=== PATIENT | female | born 2000 | race African-American/Black ===

== ENCOUNTER 2022-04-23 06:19 | Emergency (ER) | payer SELFPAY ==
--- NOTE | 2022-04-23 07:15 | ER ---
Nurse's Notes [facility] Name: Jag So Age: 22 yrs Sex: Female : 2000 Arrival Date: 04/23/2022 Time: 06:24 Bed 7 Private MD: Diagnosis: Dysuria;Acute upper respiratory infection, unspecified Presentation: 04/23 06:31 Chief complaint: Patient states: cough and sore throat began yesterday. Coronavirus kl screen: Vaccine status: Patient reports being unvaccinated. Ebola Screen: Patient negative for fever greater than or equal to 101.5 degrees Fahrenheit, and additional compatible Ebola Virus Disease symptoms. Initial Sepsis Screen: Does the patient meet any 2 criteria? No. Patient's initial sepsis screen is negative. Does the patient have a suspected source of infection? No. Patient's initial sepsis screen is negative. Risk Assessment: Do you want to hurt yourself or someone else? Patient reports no desire to harm self or others. Onset of symptoms was April 22, 2022. 06:31 Method Of Arrival: Ambulatory 06:31 Acuity: KESHAWN 3 kl Triage Assessment: 06:34 General: Appears in no apparent distress. comfortable, well developed, well nourished, kl Behavior is calm, cooperative. Pain: Complains of pain in throat. EENT: Reports difficulty swallowing. Respiratory: No deficits noted. Historical: - Allergies: 06:33 No Known Allergies; kl - Home Meds: 06:33 None [Active]; kl - PMHx: 06:33 Pneumothorax; kl - PSHx: 06:33 None; kl - Immunization history:: Adult Immunizations not up to date. - Social history:: Smoking status: Patient denies any tobacco usage or history of. - Family history:: not pertinent. Screenin:49 Abuse screen: Denies threats or abuse. Denies injuries from another. Nutritional as6 screening: No deficits noted. Tuberculosis screening: No symptoms or risk factors identified. Fall Risk None identified. Assessment: 07:00 General: RECD REPORT FROM ZAIRE TURNER. 22YO BF P/W SORE THROAT, NOW C/O DYSURIA. UOP bp PENDING. 08:04 Reassessment: PT D/C HOME AMBULATORY WITH FAMILY, DX WITH VIRAL URI AND DYSURIA. bp Vital Signs: 06:31 BP 112 / 85; Pulse 83; Resp 16; Temp 98.3(O); Pulse Ox 100% on R/A; Pain 10/10; kl 06:48 BP 110 / 76; Pulse 82; Resp 18 S; Pulse Ox 100% on R/A; as6 08:04 BP 115 / 73; Pulse 85; Resp 16; Pulse Ox 100% ; bp ED Course: 06:24 Patient arrived in ED. bp1 06:33 Zaire Soliz, RN is Primary Nurse. as6 06:33 Triage completed. kl 06:33 Renny Woodruff MD is Attending Physician. denise 06:48 Arm band placed on. as6 06:49 Bed in low position. Call light in reach. Pulse ox on. NIBP on. as6 07:16 Urine Culture Sent. mb7 08:05 No provider procedures requiring assistance completed. Patient did not have IV access bp during this emergency room visit. Administered Medications: 07:30 Drug: Augmentin (Amoxicillin-Clavulanate) 875 mg Route: PO; bp 08:04 Follow up: Response: No adverse reaction bp Medication: 08:05 VIS not applicable for this client. bp Outcome: 07:15 Discharge ordered by . denise 08:05 Discharged to home ambulatory, with family. bp 08:05 Condition: stable 08:05 Discharge instructions given to patient, Instructed on discharge instructions, follow up and referral plans. medication usage, Demonstrated understanding of instructions, follow-up care, medications, Prescriptions given X 1. 08:06 Patient left the ED. bp Signatures: Latia Lopez RN RN kl Anderson, Corey, MD MD cha Peltier, Brian, RN RN bp Paniauga, Brittany bp1 Zaire Soliz RN RN as [place] Mildred mb7
[2022-04-23 07:16] LABS: Urine Blood 3+ (Negative); Urine Glucose Negative (Negative); Urine Protein Negative (Negative); Urine Specific Gravity 1.015 (1.005-1.030)
--- NOTE | 2022-04-23 07:16 | EDPHYS ---
Physician Documentation [facility] Name: Jag So Age: 22 yrs Sex: Female : 2000 Arrival Date: 04/23/2022 Time: 06:24 Bed 7 Private MD: ED Physician Renny Woodruff HPI: 04/23 07:06 This 22 yrs old Black Female presents to ER via Ambulatory with complaints of Burning denise in throat. 07:06 The patient presents with sore throat. The patient describes throat pain as burning, denise constant. Onset: The symptoms/episode began/occurred 2 day(s) ago. The patient presents with urinary symptoms, dysuria, frequency, hematuria, hesitancy. Onset: The symptoms/episode began/occurred 2 day(s) ago. Modifying factors: The symptoms are alleviated by nothing. Associated signs and symptoms: Pertinent positives: syncope. Severity of symptoms: At their worst the symptoms were mild, in the emergency department the symptoms are unchanged. Historical: - Allergies: 06:33 No Known Allergies; kl - Home Meds: 06:33 None [Active]; kl - PMHx: 06:33 Pneumothorax; kl - PSHx: 06:33 None; kl - Immunization history:: Adult Immunizations not up to date. - Social history:: Smoking status: Patient denies any tobacco usage or history of. - Family history:: not pertinent. ROS: 07:06 Constitutional: Negative for fever, chills, and weight loss, Eyes: Negative for injury, denise pain, redness, and discharge, Neck: Negative for injury, pain, and swelling, Cardiovascular: Negative for chest pain, palpitations, and edema, Respiratory: Negative for shortness of breath, cough, wheezing, and pleuritic chest pain, Abdomen/GI: Negative for abdominal pain, nausea, vomiting, diarrhea, and constipation, Back: Negative for injury and pain, MS/Extremity: Negative for injury and deformity, Skin: Negative for injury, rash, and discoloration, Neuro: Negative for headache, weakness, numbness, tingling, and seizure. 07:06 ENT: Positive for sinus congestion, sore throat. Exam: 07:06 Constitutional: This is a well developed, well nourished patient who is awake, alert, denise and in no acute distress. Head/Face: Normocephalic, atraumatic. Eyes: Pupils equal round and reactive to light, extra-ocular motions intact. Lids and lashes normal. Conjunctiva and sclera are non-icteric and not injected. Cornea within normal limits. Periorbital areas with no swelling, redness, or edema. Neck: Trachea midline, no thyromegaly or masses palpated, and no cervical lymphadenopathy. Supple, full range of motion without nuchal rigidity, or vertebral point tenderness. No Meningismus. Chest/axilla: Normal chest wall appearance and motion. Nontender with no deformity. No lesions are appreciated. Cardiovascular: Regular rate and rhythm with a normal S1 and S2. No gallops, murmurs, or rubs. Normal PMI, no JVD. No pulse deficits. Respiratory: Lungs have equal breath sounds bilaterally, clear to auscultation and percussion. No rales, rhonchi or wheezes noted. No increased work of breathing, no retractions or nasal flaring. Abdomen/GI: Soft, non-tender, with normal bowel sounds. No distension or tympany. No guarding or rebound. No evidence of tenderness throughout. Back: No spinal tenderness. No costovertebral tenderness. Full range of motion. Skin: Warm, dry with normal turgor. Normal color with no rashes, no lesions, and no evidence of cellulitis. MS/ Extremity: Pulses equal, no cyanosis. Neurovascular intact. Full, normal range of motion. Neuro: Awake and alert, GCS 15, oriented to person, place, time, and situation. Cranial nerves II-XII grossly intact. Motor strength 5/5 in all extremities. Sensory grossly intact. Cerebellar exam normal. Normal gait. 07:06 ENT: Posterior pharynx: Tonsils: with erythema, exudate, is not appreciated, peritonsillar mass, is not appreciated. Vital Signs: 06:31 BP 112 / 85; Pulse 83; Resp 16; Temp 98.3(O); Pulse Ox 100% on R/A; Pain 10/10; kl 06:48 BP 110 / 76; Pulse 82; Resp 18 S; Pulse Ox 100% on R/A; as6 08:04 BP 115 / 73; Pulse 85; Resp 16; Pulse Ox 100% ; bp MDM: 06:33 Patient medically screened. [facility] 07:12 Differential diagnosis: group A strep tonsillitis, influenza, pharyngitis, urinary denise tract infection. Data reviewed: vital signs, nurses notes, lab test result(s). 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 Counseling: I had a detailed discussion with the patient and/or guardian regarding: the historical points, exam findings, and any diagnostic results supporting the discharge/admit diagnosis, lab results, the need for outpatient follow up, for definitive care, a family practitioner. 04/23 06:35 Order name: Strep as6 04/23 06:35 Order name: Flu as6 04/23 06:35 Order name: Strep [facility] 04/23 06:35 Order name: SARS-COV-2 RT PCR (Document "Date of Onset" if Symptomatic): DISPO [facility] 04/23 07:05 Order name: Urine Culture [facility] 04/23 07:05 Order name: Urine Dipstick-Ancillary (obtain specimen); Complete Time: 07:16 [facility] 04/23 07:05 Order name: Urine Test (obtain specimen); Complete Time: 07:16 [facility] 04/23 07:16 Order name: Urine Dipstick-Ancillary; Complete Time: 07:17 EDMS 04/23 07:18 Order name: Urine --Ancillary (enter results) em1 04/23 07:24 Order name: Throat Culture EDMS Administered Medications: 07:30 Drug: Augmentin (Amoxicillin-Clavulanate) 875 mg Route: PO; bp 08:04 Follow up: Response: No adverse reaction bp Disposition Summary: 04/23/22 07:15 Discharge Ordered Location: Home [facility] Problem: new denise Symptoms: have improved denise Condition: Stable denise Diagnosis - Dysuria denise - Acute upper respiratory infection, unspecified denise Followup: denise - With: Private Physician - When: 2 - 3 days - Reason: Recheck today's complaints, Continuance of care, Re-evaluation by your physician Discharge Instructions: - Discharge Summary Sheet denise - Dysuria denise - Viral Respiratory Infection denise - Cool Mist Vaporizer denise - Upper Respiratory Infection, Adult, [id number] denise - Cough, Adult denise Forms: - Medication Reconciliation Form denise - Thank You Letter denise - Antibiotic Education denise - Prescription Opioid Use denise - Work release form em1 Prescriptions: - Augmentin 875-125 mg Oral Tablet - take 1 tablet by ORAL route every 12 hours for 7 days; 14 tablet; Refills: 0, denise Product Selection Permitted Signatures: Dispatcher [employer] Latia Topete, RN RN Renny Stoll MD MD cha Peltier, Brian RN RN bp
[2022-04-23 07:49] LABS: Urine Specific Gravity/Preg 1.015 (1.005-1.030)
[2022-04-23] MEDS ORDERED: AMOX/K CLAV 875 MG TAB ONE (08:03)
[2022-04-23 08:11] VITALS: TEMP 98.3; O2SAT 100
[2022-04-23 08:14] VITALS: BP 115/73
== END 2022-04-23 08:06 | disposition home or self-care (01) ==
LOC: ER 06:19
DX: J06.9 Acute upper respiratory infection, unspecified (principal); R30.0 Dysuria; Z20.822 Contact with and (suspected) exposure to COVID-19
CPT/HCPCS: 81003; 81025; 87070; 87081; 87086; 87088; 87804; 99284; U0003